=== PATIENT | female | born 1995 | race Caucasian/White ===

== ENCOUNTER 2017-05-22 19:40 | Emergency (ER) | payer SELFPAY ==
[~2017-05-22] VITALS: Ht 162.6 cm; Wt 100.0 kg
[2017-05-22 19:42] VITALS: BP 138/79; PULSE 117; RESP 14; TEMP 99.3; O2SAT 98
--- NOTE | 2017-05-22 20:34 | RADRPT ---
EXAM DATE/TIME: 05/22/2017 20:25 [place] COMPARISON: No previous studies available for comparison. INDICATIONS : Chest pain. MEDICAL HISTORY : None. SURGICAL HISTORY : None. ENCOUNTER: Initial ACUITY: 3 days PAIN SCORE: 6/10 LOCATION: Bilateral chest FINDINGS: PA and lateral views of the chest demonstrate the lungs to be symmetrically aerated without evidence of mass, infiltrate or effusion. The cardiomediastinal contours are unremarkable. Osseous structure s are intact. CONCLUSION: No acute disease. Navin Monteiro MD on May 22, 2017 at 20:31 Board Certified Radiologist. This report was verified electronically.
[2017-05-22 22:21] LABS: AUTOMATED NEUTROPHIL # 5.7 TH/MM3 (1.8-7.7); BASOPHIL # 0.1 TH/MM3 (0-0.2); BASOPHIL % 0.6 % (0.0-2.0); BILIRUBIN, URINE NEG (NEG); BLOOD, URINE SMALL (NEG); EOSINOPHIL # 0.1 TH/MM3 (0-0.4); EOSINOPHIL % 1.4 % (0.0-4.0); GLUCOSE,URINE NEG (NEG); HEMATOCRIT 39.8 % (35.0-46.0); HEMOGLOBIN 13.4 GM/DL (11.6-15.3); KETONE, URINE NEG (NEG); LYMPH % 31.3 % (9.0-44.0); LYMPHOCYTE # 3.1 TH/MM3 (1.0-4.8); MEAN CELL VOLUME 86.6 FL (80.0-100.0); MEAN CORPUSCULAR HEMOGLOBIN 29.1 PG (27.0-34.0); MEAN CORPUSCULAR HGB CONC 33.6 % (32.0-36.0); MEAN PLATELET VOLUME 8.6 FL (7.0-11.0); MONO % 9.4 % (0.0-8.0); MONOCYTE # 0.9 TH/MM3 (0-0.9); NEUT % 57.3 % (16.0-70.0); NITRITE,URINE NEG (NEG); PH, URINE 6.5 (5.0-8.5); PLATELET COUNT 329 TH/MM3 (150-450); RED CELL DISTRIBUTION WIDTH 13.3 % (11.6-17.2); SQUAMOUS EPITHELIAL CELL URINE 3 /hpf (0-5); URINE COLOR YELLOW (YELLW/STRAW); URINE LEUKOCYTE ESTERASE SMALL (NEG); WHITE BLOOD COUNT 9.9 TH/MM3 (4.0-11.0)
[2017-05-22 22:37] LABS: BICARBONATE 29.4 MEQ/L (21.0-32.0); BLOOD UREA NITROGEN 10 MG/DL (7-18); CALCIUM 8.9 MG/DL (8.5-10.1); CHLORIDE 105 MEQ/L (98-107); CREATININE 0.47 MG/DL (0.50-1.00); GLOMERULAR FILTRATION RATE 166 ML/MIN (>89); GLUCOSE,RANDOM 78 MG/DL (74-106); MAGNESIUM 2.2 MG/DL (1.5-2.5); SODIUM (NA) 140 MEQ/L (136-145)
[2017-05-22 22:41] LABS: TROPONIN I LESS THAN 0.02 NG/ML (0.02-0.05)
--- NOTE | 2017-05-23 00:07 | PD ---
HPI Chief Complaint: Chest Pain Time Seen by Provider: 23:56 Travel History International Travel<30 days: No Contact w/Intl Traveler<30days: No Traveled to known affect area: No History of Present Illness HPI 21-year-old female here for evaluation of chest pain and headache. The patient reports that her last week she has been having left-sided chest pain that she describes as pinching, moderate, intermittent, no modifying factors. She denies any history of cardiac disease. No family history of cardiac disease. No history of DVT or PE. No dyspnea. She did have some upper respiratory symptoms about a week ago which seemed to resolve. For the last 2 days she has been having a progressively worsening left-sided headache which she describes as sharp. Pain is currently 10 out of 10, however onset was gradual. She did not take anything for the pain. She has felt nauseous but has not vomited. She has had some loose bowel movements. No abdominal pain. PFSH Past Medical History Reproductive: Yes (PCOS) Immunizations Current: No ?: Not LMP: 03/30/2017 : 0 Para: 0 Past Surgical History Surgical History: No Previous Surgery Social History Alcohol Use: No Tobacco Use: No Substance Use: No Allergies-Medications (Allergen,Severity, Reaction): Coded Allergies: No Known Allergies (Unverified , 05/22/17) Reported Meds & Prescriptions Reported Meds & Active Scripts Active No Active Prescriptions or Reported Medications Review of Systems Except as stated in HPI: all other systems reviewed are Neg Physical Exam Narrative GENERAL: Well-developed, well-nourished, comfortable, no apparent distress. SKIN: Focused skin assessment warm/dry. No rash. HEAD: Atraumatic. Normocephalic. EYES: Pupils equal, round, 3 mm, reactive to light. EOMI. No scleral icterus. No injection or drainage. ENT: No nasal bleeding or discharge. Mucous membranes pink and moist. NECK: Trachea midline. No JVD. No nuchal rigidity. CARDIOVASCULAR: Regular rate and rhythm. RESPIRATORY: No accessory muscle use. Clear to auscultation. Breath sounds equal bilaterally. GASTROINTESTINAL: Abdomen soft, non-tender, nondistended. MUSCULOSKELETAL: No obvious deformities. No clubbing. No cyanosis. No edema. NEUROLOGICAL: Awake and alert. No obvious cranial nerve deficits. Motor grossly within normal limits. Normal speech. PSYCHIATRIC: Appropriate mood and affect; insight and judgment normal. Data Data Last Documented VS Vital Signs Date Time Temp Pulse Resp B/P (MAP) Pulse Ox O2 Delivery O2 Flow Rate FiO2 05/23/17 00:15 97.9 82 16 125/64 (84) 100 Room Air Orders Orders Electrocardiogram (05/22/17 20:00) Basic Metabolic Panel (Bmp) (05/22/17 20:00) Ckmb (Isoenzyme) Profile (05/22/17 20:00) Complete Blood Count With Diff (05/22/17 20:00) Magnesium (Mg) (05/22/17 20:00) Prothrombin Time / Inr (Pt) (05/22/17 20:00) Act Partial Throm Time (Ptt) (05/22/17 20:00) Troponin I (05/22/17 20:00) Chest, Pa & Lat (05/22/17 20:00) Urinalysis - C+S If Indicated (05/22/17 20:00) Ed Urine Pregnancytest Poc (05/22/17 20:00) Sodium Chlor 0.9% 1000 Ml Inj (Ns 1000 M (05/23/17 00:15) Metoclopramide Inj (Reglan Inj) (05/23/17 00:15) Ketorolac Inj (Toradol Inj) (05/23/17 00:15) D-Dimer (05/23/17 00:02) Labs Laboratory Tests Test 05/22/17 21:50 05/23/17 00:07 White Blood Count 9.9 TH/MM3 Red Blood Count 4.60 MIL/MM3 Hemoglobin 13.4 GM/DL Hematocrit 39.8 % Mean Corpuscular Volume 86.6 FL Mean Corpuscular Hemoglobin 29.1 PG Mean Corpuscular Hemoglobin Concent 33.6 % Red Cell Distribution Width 13.3 % Platelet Count 329 TH/MM3 Mean Platelet Volume 8.6 FL Neutrophils (%) (Auto) 57.3 % Lymphocytes (%) (Auto) 31.3 % Monocytes (%) (Auto) 9.4 % Eosinophils (%) (Auto) 1.4 % Basophils (%) (Auto) 0.6 % Neutrophils # (Auto) 5.7 TH/MM3 Lymphocytes # (Auto) 3.1 TH/MM3 Monocytes # (Auto) 0.9 TH/MM3 Eosinophils # (Auto) 0.1 TH/MM3 Basophils # (Auto) 0.1 TH/MM3 CBC Comment DIFF FINAL Differential Comment Prothrombin Time 10.0 SEC Prothromb Time International Ratio 1.0 RATIO Activated Partial Thromboplast Time 29.1 SEC Urine Color YELLOW Urine Turbidity CLEAR Urine pH 6.5 Urine Specific [place] 1.015 Urine Protein 30 mg/dL Urine Glucose (UA) NEG mg/dL Urine Ketones NEG mg/dL Urine Occult Blood SMALL Urine Nitrite NEG Urine Bilirubin NEG Urine Urobilinogen LESS THAN 2.0 MG/DL Urine Leukocyte Esterase SMALL Urine RBC 2 /hpf Urine WBC 3 /hpf Urine Squamous Epithelial Cells 3 /hpf Microscopic Urinalysis Comment CULT NOT INDICATED Blood Urea Nitrogen 10 MG/DL Creatinine 0.47 MG/DL Random Glucose 78 MG/DL Calcium Level 8.9 MG/DL Magnesium Level 2.2 MG/DL Sodium Level 140 MEQ/L Potassium Level 4.0 MEQ/L Chloride Level 105 MEQ/L Carbon Dioxide Level 29.4 MEQ/L Anion Gap 6 MEQ/L Estimat Glomerular Filtration Rate 166 ML/MIN Total Creatine Kinase 73 U/L Troponin I LESS THAN 0.02 NG/ML D-Dimer Quantitative (PE/DVT) 0.26 MG/L [facility] Medical Decision Making Medical Screen Exam Complete: Yes Emergency Medical Condition: Yes Interpretation(s) EKG: Sinus, rate 85, normal axis, normal intervals, no acute ischemic abnormality. Differential Diagnosis ACS, pneumothorax, pericarditis, PE, pneumonia, musculoskeletal pain, GERD, tension headache, cluster headache, migraine headache, SAH/meningitis/ encephalitis unlikely Narrative Course Initial vital signs showed a heart rate of 117 which improved to 82 without any intervention, blood pressure 125/64, pulse ox 100% on room air, oral temp of 97.9F. CBC is unremarkable. BMP is unremarkable. Cardiac enzymes are negative. D-dimer is negative at 0.26. UA is not suggestive of UTI. Urine is negative. Chest x-ray: No acute disease. Patient was given a liter of normal saline IV, IV Toradol, and IV Reglan, and on reassessment she states her headache has resolved. I do not believe that there is a serious etiology for her headache such as meningitis/encephalitis/ SAH. I also do not believe her chest pain is cardiopulmonary in nature. With the patient and the patient's significant other were made aware of all findings. She states she would like to go home. I believe she is stable for discharge home with outpatient follow-up with a primary care physician this week. She was informed on when to return to the emergency department. She verbalizes understanding and agreement with plan. Diagnosis Primary Impression: Atypical chest pain Additional Impression: Headache Qualified Codes: R51 - Headache Referrals: [facility] 3 days Primary Care Physician 3 days Additional Instructions: Follow-up with a primary care physician this week. Return to the emergency department for worsening symptoms or any other concerns. Scripts No Active Prescriptions or Reported Meds Disposition: 01 DISCHARGE HOME Condition: Stable Clayton Antunez MD May 23, 2017 00:07
[2017-05-23 00:15] VITALS: BP 125/64; PULSE 82; RESP 16; TEMP 97.9; O2SAT 100
[2017-05-23] MEDS ORDERED: KETOROLAC TROMETHAMINE 30 MG/ML (IVP) VIAL IV PUSH ONE (00:15)
[2017-05-23] MEDS ORDERED: SODIUM CHLOR 0.9% 1000 ML INJ 1,000 ML IV ONE (00:15)
[2017-05-23] MEDS ORDERED: METOCLOPRAMIDE HCL 10 MG/2 ML VIAL IV PUSH ONE (00:15)
--- NOTE | 2017-05-23 12:15 | EKG ---
Date Performed: 05/22/2017 Time Performed: 21:47:06 PTAGE: 21 years EKG: Sinus rhythm NORMAL ECG NO PREVIOUS TRACING DOCTOR: Jahaira Arteaga Interpretating Date/Time 05/23/2017 12:14:37
== END 2017-05-23 03:07 | disposition home or self-care (01) ==
LOC: NEPD 19:40
DX: R07.89 Other chest pain (principal); R51 Headache; E28.2 Polycystic ovarian syndrome
CPT/HCPCS: 71046; 80048; 81001; 82550; 83735; 84484; 84703; 85025; 85379; 85610; 85730; 93005; 96374; 96375; 99285; J1885; J2765; J7030